=== PATIENT | male | born 1990 | race Caucasian/White ===

== ENCOUNTER 2024-04-09 10:54 | Day surgery (SDC) | payer BC, OTHER ==
[2024-04-09] MEDS: IV FLUID CONTINUATION 1,000 ML IV ONE (11:40)
[2024-04-09] MEDS: SCOPOLAMINE 1 MG/72 HR PATCH TRANSDERM STA (11:45)
[2024-04-09] MEDS: DEXAMETHASONE SOD PHOSPHATE 4 MG/ML 1 ML VIAL IV ONE (11:45)
[2024-04-09] MEDS: ONDANSETRON 4 MG/2 ML VIAL IVP ONE (11:46)
[2024-04-09] MEDS: HEPARIN SODIUM,PORCINE 5,000 UNIT/ML 1 ML VIAL SQ STA (11:47)
[2024-04-09 11:48] LABS: HCT 47.6 % (39.0-53.0); HGB 16.6 gm/dL (13.0-17.5); MCH 30.1 pg (25.0-35.0); MCHC 34.8 g/dL (31.0-37.0); MCV 86.3 fL (80.0-100.0); Mean Platelet Volume 6.2; Platelet Count 387 k/uL (150-450); RBC 5.52 m/uL (4.30-5.90); RDW 11.9 % (11.5-15.5); WBC 9.1 k/uL (3.8-10.6)
[2024-04-09] MEDS: LACTATED RINGERS 1,000 ML IV SCH (11:56)
[2024-04-09] MEDS ORDERED: PROPOFOL 10 MG/ML 20 ML VIAL IV ONE (12:53)
[2024-04-09] MEDS ORDERED: LIDOCAINE 1% INJ 10MG/ML (20 ML MDV) ONE (12:53)
[2024-04-09] MEDS ORDERED: MIDAZOLAM 2 MG/2 ML VIAL ONE (12:53)
[2024-04-09] MEDS ORDERED: SUCCINYLCHOLINE CHLORIDE 200 MG/10 ML VIAL IV ONE (12:53)
[2024-04-09] MEDS ORDERED: fentaNYL (PF) 50 MCG/ML 2 ML AMP ONE (12:53)
[2024-04-09] MEDS ORDERED: GLYCOPYRROLATE 0.2 MG/ML 2 ML VIAL ONE (12:53)
[2024-04-09] MEDS ORDERED: ROCURONIUM 10 MG/ML (5 ML VIAL) IV ONE (12:53)
[2024-04-09] MEDS ORDERED: NEOSTIGMINE 1 MG/ML 10 ML VIAL ONE (12:53)
[2024-04-09] MEDS: LIDOCAINE 1%-EPI 1:100,000 20 ML VIAL SQ ONE ×2 (13:19)
[2024-04-09] MEDS: HYDROmorphone 0.5 MG/0.5 ML SYRINGE IVP PRN (14:03)
[2024-04-09 14:10] VITALS: TEMP 97.9
[2024-04-09 14:42] VITALS: RESP 18
[2024-04-09] MEDS: HYDROcodone/APAP 5-325MG 1 EACH TAB PO STA (14:46)
[2024-04-09 15:11] VITALS: BP 129/82; PULSE 76
--- NOTE | 2024-04-10 16:52 | P.OP ---
Date of Procedure: 04/09/24 Preoperative Diagnosis: Right inguinal hernia Postoperative Diagnosis: Right inguinal indirect hernia Procedure(s) Performed: Robotic right inguinal indirect hernia repair with mesh Implants: Right sided ProGrip mesh Anesthesia: SARAH Surgeon: Kierra Robertson Pathology: none sent Condition: stable Disposition: same day Indications for Procedure: 33-year-old male presented with complaint of significant right groin pain. On exam he is found to have a right inguinal hernia. Secondary to this, plan is for robotic right inguinal hernia repair with mesh. Risks, benefits and alternatives were provided. All questions answered prior to attending the operating suite. Operative Findings: Right inguinal indirect hernia Description of Procedure: Patient was brought to the operating suite and placed in supine position on the operating table. Sedation was provided anesthesia and the patient underwent endotracheal intubation. The patient was prepped and draped in regular sterile fashion. A supraumbilical incision was made and dissection was carried to the fascia. The fascia was incised and an 8 mm trocar was placed. Pneumoperitoneum was achieved. 2 additional incisions were made approximately 11 cm lateral to the supraumbilical incision and 8 mm trocars were placed. The patient was then placed in Trendelenburg position and the hernia was clearly visualized on the right side. This was noted as an indirect inguinal hernia. The robot was then docked appropriately. Incision was then made just lateral to the medial umbilical ligament on the right side with the monopolar scissors and the peritoneal flap was created and taken down towards Mariano's ligament. The flap was then extended laterally. Attention was then turned to the indirect inguinal hernia. The sac was freed from the cord all while preserving the cord structures. At this point the indirect hernia was reduced. Once the entire space was appropriately dissected out, we brought the ProGrip mesh and unrolled it over the hernia site. Once appropriately in place the peritoneal flap was closed using a running 2 OV lock suture. Once this was completed we removed all the robotic instruments and undocked the robot. The supraumbilical fascial incision was closed with an 0 Vicryl suture using Clive-Val device. This was done under laparoscopic guidance. All skin incisions were then closed with 4-0 Vicryl subcuticular suture. The patient was then awakened and taken to postanesthesia care unit in stable condition.
== END 2024-04-09 15:40 | disposition home or self-care (01) ==
LOC: OR 10:54
PROVIDERS: ATTEND Surgery
DX: K40.90 Unilateral inguinal hernia, without obstruction or gangrene, not specified as recurrent (principal); F12.90 Cannabis use, unspecified, uncomplicated; J45.909 Unspecified asthma, uncomplicated
CPT/HCPCS: 49650; S2900; 85027